=== PATIENT | male | born 1970 | race Caucasian/White ===

== ENCOUNTER 2018-06-12 08:55 | Outpatient (CLI) | payer BC ==
--- NOTE | 2018-06-11 08:10 | NUR ---
CALLED AND LEFT MSG FOR PT TO CALL BACK TO VERIFY ALLERGIES, MEDS AND PMH. CALL BACK NUMBER LEFT.
[2018-06-12] VITALS (7 sets, daily range): BP systolic 128–135; BP diastolic 82–97; PULSE 57–63
[~2018-06-12] VITALS: Wt 79.7 kg
[~2018-06-12 08:55] MED LIST: B COMPLEX #11 TAB PO; EQUETRO300MG PO; KEPPRA750 MG PO; KLONOPIN 1MG1 MG PO
--- NOTE | 2018-06-12 11:00 | NUR ---
Pt to room 11 after lumbar puncture. VSS and Ax0x3. Pain denied at this time. Band aid to back c/d/i. Pt resting comfortably in bed at this time.
[2018-06-12 11:13] LABS: GLUCOSE,CSF 56 mg/dL (40-70); TOTAL PROTEIN,CSF 61 mg/dL (15-45)
[2018-06-12 11:57] LABS: CSF APPEARANCE CLEAR; CSF COLOR COLORLESS
[2018-06-12 11:58] LABS: CSF MONONUCLEAR 99 % (70-100); CSF POLYMORPHONUCLEAR 1 % (0-6); CSF RBC 184 /mm3 (0-0)
--- NOTE | 2018-06-12 12:10 | NUR ---
Pt VSS and Ax0x3 post lumbar puncture. site c/d/i. Pt ambulated without difficulty and voided once. Advised to increase fluid intake per post instructions. Discharge instructions reviewed and signed. Pt wheeled safely out via wheelchair where flag car driver was present to drive him home.
== END 2018-06-12 12:10 | disposition home or self-care (01) ==
LOC: COL.RAD 08:55
PROVIDERS: Psychiatry & Neurology Neurology
DX: G37.9 Demyelinating disease of central nervous system, unspecified (principal)

== ENCOUNTER → 2018-10-07 | Outpatient (CLI) | payer BC | LOC: COL.RAD 07:54 | DX: M46.82 Other specified inflammatory spondylopathies, cervical region (principal); M50.221 Other cervical disc displacement at C4-C5 level; M48.02 Spinal stenosis, cervical region; G95.19 Other vascular myelopathies; G37.9 Demyelinating disease of central nervous system, unspecified; Z86.69 Personal history of other diseases of the nervous system and sense organs | CPT/HCPCS: A9585 ==

== ENCOUNTER → 2019-12-20 | Outpatient (CLI) | payer BC | LOC: COL.RAD 10:02 | DX: G93.89 Other specified disorders of brain (principal); Z98.890 Other specified postprocedural states | CPT/HCPCS: A9585 ==

== ENCOUNTER → 2023-12-16 | Outpatient (CLI) | payer BC ==
[~2023-12-16] MED LIST changes: +Gadoterate 15 ML VIAL IV ONE
== END ==
LOC: COL.RAD 12:18
DX: G40.209 Localization-related (focal) (partial) symptomatic epilepsy and epileptic syndromes with complex partial seizures, not intractable, without status epilepticus (principal); Z96.89 Presence of other specified functional implants; Z98.890 Other specified postprocedural states
CPT/HCPCS: A9575